=== PATIENT | female | born 1955 | race Caucasian/White ===

== ENCOUNTER 2017-11-10 14:01 | Outpatient (CLI) | payer OTHER | END 2017-11-10 14:02 | disposition home or self-care (01) | LOC: BICMAMMO 14:01 | PROVIDERS: ATTEND Family Medicine | DX: Z12.31 Encounter for screening mammogram for malignant neoplasm of breast (principal) | CPT/HCPCS: 77063; 77067 ==

== ENCOUNTER 2018-12-01 13:09 | Outpatient (CLI) | payer OTHER | END 2018-12-01 13:10 | disposition home or self-care (01) | LOC: BICMAMMO 13:09 | PROVIDERS: ATTEND Family Medicine | DX: Z12.31 Encounter for screening mammogram for malignant neoplasm of breast (principal) | CPT/HCPCS: 77063; 77067 ==

== ENCOUNTER 2019-12-05 13:06 | Outpatient (CLI) | payer OTHER ==
--- NOTE | 2019-12-05 15:24 | MMO ---
Bilateral MAMMO Bilat Screen [facility]. CLINICAL HISTORY: Patient is 64 years old and is seen for screening. The patient has no family history of breast cancer. The patient has no personal history of cancer. VIEWS: The views performed were: bilateral craniocaudal with tomosynthesis and bilateral mediolateral oblique with tomosynthesis. FILMS COMPARED: The present examination has been compared to prior imaging studies performed at [facility] on 10/29/2015, 10/30/2016, 11/10/2017 and 12/01/2018. This study has been interpreted with the assistance of computer-aided detection. MAMMOGRAM FINDINGS: There are scattered fibroglandular densities. There are no suspicious masses, suspicious calcifications, or new areas of architectural distortion. IMPRESSION: THERE IS NO MAMMOGRAPHIC EVIDENCE OF MALIGNANCY. A ROUTINE FOLLOW-UP MAMMOGRAM IN 1 YEAR IS RECOMMENDED. THE RESULTS OF THIS EXAM WERE SENT TO THE PATIENT. ACR BI-RADS Category 1 - Negative MAMMOGRAPHY NOTE: 1. A negative mammogram report should not delay a biopsy if a dominant of clinically suspicious mass is present. 2. Approximately 10% to 15% of breast cancers are not detected by mammography. 3. Adenosis and dense breasts may obscure an underlying neoplasm. Reported by: ORA VACA MD Electonically Signed: [id number]
== END 2019-12-05 13:07 | disposition home or self-care (01) ==
LOC: BICMAMMO 13:06
PROVIDERS: ATTEND Family Medicine
DX: Z12.31 Encounter for screening mammogram for malignant neoplasm of breast (principal)
CPT/HCPCS: 77063; 77067

== ENCOUNTER 2020-12-12 15:39 | Outpatient (CLI) | payer BC ==
--- NOTE | 2020-12-12 16:09 | MMO ---
Bilateral MAMMO Bilat Screen [facility]. CLINICAL HISTORY: Patient is 65 years old and is seen for screening. The patient has no family history of breast cancer. The patient has no personal history of cancer. VIEWS: The views performed were: bilateral craniocaudal with tomosynthesis and bilateral mediolateral oblique with tomosynthesis. FILMS COMPARED: The present examination has been compared to prior imaging studies performed at [facility] on 10/30/2016, 11/10/2017, 12/01/2018 and 12/05/2019. This study has been interpreted with the assistance of computer-aided detection. MAMMOGRAM FINDINGS: There are scattered fibroglandular densities. There are no suspicious masses, suspicious calcifications, or new areas of architectural distortion. IMPRESSION: THERE IS NO MAMMOGRAPHIC EVIDENCE OF MALIGNANCY. A ROUTINE FOLLOW-UP MAMMOGRAM IN 1 YEAR IS RECOMMENDED. THE RESULTS OF THIS EXAM WERE SENT TO THE PATIENT. ACR BI-RADS Category 1 - Negative MAMMOGRAPHY NOTE: 1. A negative mammogram report should not delay a biopsy if a dominant of clinically suspicious mass is present. 2. Approximately 10% to 15% of breast cancers are not detected by mammography. 3. Adenosis and dense breasts may obscure an underlying neoplasm. Reported by: JANIS REYNA MD Electonically Signed: [id number]
== END 2020-12-12 15:40 | disposition home or self-care (01) ==
LOC: BICMAMMO 15:39
PROVIDERS: ATTEND Family Medicine
DX: Z12.31 Encounter for screening mammogram for malignant neoplasm of breast (principal)
CPT/HCPCS: 77063; 77067

== ENCOUNTER 2021-12-23 09:46 | Outpatient (CLI) | payer BC, OTHER | END 2021-12-23 09:47 | disposition home or self-care (01) | LOC: BICMAMMO 09:46 | PROVIDERS: ATTEND Family Medicine | DX: Z12.31 Encounter for screening mammogram for malignant neoplasm of breast (principal) | CPT/HCPCS: 77063; 77067 ==

== ENCOUNTER 2022-12-26 14:33 | Outpatient (CLI) | payer BC, OTHER | END 2022-12-26 14:34 | disposition home or self-care (01) | LOC: BICMAMMO 14:33 | PROVIDERS: ATTEND Family Medicine | DX: Z12.31 Encounter for screening mammogram for malignant neoplasm of breast (principal); N64.89 Other specified disorders of breast | CPT/HCPCS: 77063; 77067 ==

== ENCOUNTER 2022-12-30 13:24 | Outpatient (CLI) | payer BC, OTHER | END 2022-12-30 13:25 | disposition home or self-care (01) | LOC: BICMAMMO 13:24 | PROVIDERS: ATTEND Family Medicine | DX: N64.89 Other specified disorders of breast (principal) | CPT/HCPCS: G0279 ==

== ENCOUNTER 2024-01-06 10:47 | Outpatient (CLI) | payer BC | END 2024-01-06 10:48 | disposition home or self-care (01) | LOC: BICMAMMO 10:47 | PROVIDERS: ATTEND Family Medicine | DX: Z12.31 Encounter for screening mammogram for malignant neoplasm of breast (principal) | CPT/HCPCS: 77063; 77067 ==

== ENCOUNTER 2025-06-19 13:49 | Outpatient (CLI) | payer OTHER | END 2025-06-19 13:50 | disposition home or self-care (01) | LOC: BICMAMMO 13:49 | PROVIDERS: ATTEND Family Medicine | DX: Z12.31 Encounter for screening mammogram for malignant neoplasm of breast (principal); Z80.3 Family history of malignant neoplasm of breast | CPT/HCPCS: 77063; 77067 ==